=== PATIENT | female | born 1985 | race Caucasian/White ===

== ENCOUNTER → 2023-08-11 16:05 | Outpatient (REF) | payer BC, SELFPAY | LOC: RAD 16:05 | PROVIDERS: ATTENDING PHYSICIAN Obstetrics & Gynecology; FAMILY PHYSICIAN Internal Medicine | DX: Z36.9 Encounter for antenatal screening, unspecified (principal); Z34.90 Encounter for supervision of normal pregnancy, unspecified, unspecified trimester | CPT/HCPCS: 76801; 76817 ==

== ENCOUNTER 2024-02-05 08:52 | Inpatient (IN) | payer BC, SELFPAY ==
[2024-02-05 09:12] VITALS: BP 105/65; BMI 26.5
[2024-02-05] MEDS: TYLENOL 1000 MG PO (09:16)
[2024-02-05] MEDS: ANCEF 10 IV (09:17)
[2024-02-05] MEDS: BICITRA 30 ML PO (09:17)
[2024-02-05 09:20] LABS: Hematocrit 33.2 % (37.0-47.0); Hemoglobin 11.4 g/dL (12.0-16.0); Mean Corp Hgb Conc. 34.3 g/dL (33.0-37.0); Mean Corpuscular Hgb 28.4 pg (27.0-31.0); Mean Corpuscular Volume 82.6 fL (81.0-99.0); Mean Platelet Volume 9.3 fL (7.4-10.4); Platelet Count 188 10^3/uL (130-400); Red Blood Cell Count 4.02 10^6/uL (4.20-5.40); Red Cell Dist. Width 15.4 % (11.5-14.5); White Blood Cell Count 9.2 10^3/uL (4.8-10.8)
[2024-02-05 16:38] LABS: Hematocrit 33.1 % (37.0-47.0); Hemoglobin 11.5 g/dL (12.0-16.0); Mean Corp Hgb Conc. 34.7 g/dL (33.0-37.0); Mean Corpuscular Hgb 29.3 pg (27.0-31.0); Mean Corpuscular Volume 84.4 fL (81.0-99.0); Platelet Count 188 10^3/uL (130-400); Red Blood Cell Count 3.92 10^6/uL (4.20-5.40); Red Cell Dist. Width 15.2 % (11.5-14.5); White Blood Cell Count 15.6 10^3/uL (4.8-10.8)
[2024-02-05] MEDS: TYLENOL 650 MG PO (20:01)
[2024-02-05] MEDS: MOTRIN 600 MG PO (20:01)
[2024-02-06] MEDS: MOTRIN 600 MG PO ×4 (02:18→22:13)
[2024-02-06] MEDS: TYLENOL 650 MG PO ×4 (02:18→22:13)
[2024-02-06 05:50] LABS: Hematocrit 29.6 % (37.0-47.0); Hemoglobin 10.3 g/dL (12.0-16.0); Mean Corp Hgb Conc. 34.8 g/dL (33.0-37.0); Mean Corpuscular Hgb 29.6 pg (27.0-31.0); Mean Corpuscular Volume 85.1 fL (81.0-99.0); Mean Platelet Volume 9.3 fL (7.4-10.4); Platelet Count 174 10^3/uL (130-400); Red Blood Cell Count 3.48 10^6/uL (4.20-5.40); Red Cell Dist. Width 15.3 % (11.5-14.5); White Blood Cell Count 13.3 10^3/uL (4.8-10.8)
[2024-02-06] MEDS: PRENATAL PLUS 1 TABLET PO (08:41)
[2024-02-06] MEDS: SENOKOT-S 1 TABLET PO (08:41)
[2024-02-07] MEDS: TYLENOL 650 MG PO ×2 (05:14→15:18)
[2024-02-07] MEDS: MOTRIN 600 MG PO ×2 (05:14→15:18)
[2024-02-07] MEDS: SENOKOT-S 1 TABLET PO (08:19)
[2024-02-07] MEDS: PRENATAL PLUS 1 TABLET PO (08:19)
--- NOTE | 2024-02-07 13:54 | W.PN.ANS.POP ---
Anesthesia Post Operative
- Anesthesia Post Op Note
Vital Signs Stable-See Nursing Note: Yes
Airway Patent: Yes
Adequate Pain Control: Yes
Change in Mental Status: No
Current Postoperative Nausea & Vomiting: No
Anesthesia Complications: No
General Anesthetic Recall: No
Unplanned Admission: No
Post Op Hydration Adequate: Yes
[2024-02-08] MEDS: TYLENOL 650 MG PO ×2 (02:02→08:20)
[2024-02-08] MEDS: MOTRIN 600 MG PO ×2 (02:03→08:20)
[2024-02-08] MEDS: PRENATAL PLUS 1 TABLET PO (08:19)
--- NOTE | 2024-02-08 09:42 | W.DS.TRANS ---
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
-
Discharge Instructions:
Discharge Diagnosis/Procedures rcs
Instructions:
Stand-Alone Forms: LDRP Delivery
Changes to Home Medications: No
Discharge Medications:
DC Medications w/original date entered in [employer]
vit no.95-ferrous fumarate 28 mg-folic acid 800 mcg tablet () 1 ea PO DAILY Supplement 06/21/19
Pepcid 40 mg ONCE 02/05/24
ibuprofen 600 mg tablet 600 mg PO Q6HPRN PRN cramps #90 tabs 02/08/24
Home Medication Changes
Pending Results: No
Total time spent discharging patient (in min): 20
[2024-02-09 15:22] LABS: Syphilis/T. pallidum Ab Reflex Negative (Negative)
== END 2024-02-08 12:27 | disposition home or self-care (01) | DRG 787 ==
LOC: LDRP 08:52
PROVIDERS: ADMITTING PHYSICIAN Obstetrics & Gynecology; ATTENDING PHYSICIAN Obstetrics & Gynecology
PROC: 10D00Z1 Extraction of Products of Conception, Low, Open Approach (ICD-10-PCS; 2024-02-05)
DX: O34.211 Maternal care for low transverse scar from previous cesarean delivery (principal); N99.840 Postprocedural hematoma of a genitourinary system organ or structure following a genitourinary system procedure; Z37.0 Single live birth; Z3A.39 39 weeks gestation of pregnancy; O99.892 Other specified diseases and conditions complicating childbirth; D27.1 Benign neoplasm of left ovary
CPT/HCPCS: 36415; 85027; 86780; 86850; 86900; 86901

== ENCOUNTER → 2024-09-27 10:28 | Outpatient (REF) | payer OTHER, SELFPAY | LOC: HWRAD 10:28 | PROVIDERS: ATTENDING PHYSICIAN Obstetrics & Gynecology; FAMILY PHYSICIAN Internal Medicine | DX: K09.8 Other cysts of oral region, not elsewhere classified (principal) | CPT/HCPCS: 76830; 76856 ==

== ENCOUNTER 2024-12-30 05:52 | Day surgery (SDC) | payer OTHER, SELFPAY ==
[2024-12-12 11:59] LABS: Beta HCG Quantitative < 2.39 mIU/ml
[2024-12-12 14:20] VITALS: BMI 20.8
[2024-12-30] VITALS (10 sets, daily range): BP systolic 79–113; BP diastolic 48–70; BMI 20.8
[2024-12-30] MEDS: NEURONTIN 300 MG PO (06:26)
[2024-12-30] MEDS: TYLENOL 1000 MG PO (06:26)
[2024-12-30] MEDS: NORMOSOL-R/PLASMALYTE-A 1000 IV (06:45)
[2024-12-30 06:53] LABS: Hematocrit 34.8 % (37.0-47.0); Hemoglobin 11.8 g/dL (12.0-16.0); Mean Corp Hgb Conc. 33.9 g/dL (33.0-37.0); Mean Corpuscular Volume 84.9 fL (81.0-99.0); Platelet Count 194 10^3/uL (130-400); Red Cell Dist. Width 12.9 % (11.5-14.5)
[2024-12-30 07:05] LABS: ALT (SGPT) 17 U/L (0-35); AST (SGOT) 23 U/L (14-36); Albumin 4.2 g/dl (3.5-5.0); Alkaline Phosphatase < 20 U/L (38-126); Blood Urea Nitrogen 18 mg/dl (7-17); Calcium 8.7 mg/dl (8.4-10.2); Carbon Dioxide 28 mmol/L (22-30); Chloride 107 mmol/L (98-107); Estimated Creatinine Clearance 104 ml/min; Glucose 87 mg/dl (70-99); Potassium 4.4 mmol/L (3.5-5.1); Sodium 140 mmol/L (135-145); Total Protein 6.4 g/dl (6.3-8.2); eGFR > 60.00
--- NOTE | 2024-12-30 09:28 | W.IMMPOSTOP ---
Surgical Immed Post Op Note
-
Primary Surgeon: Lary Regan DO
[place] Attendant: Agustina Ponce PA-C
Pre-op Diagnosis: Left ovarian dermoid cyst, endometrial echogenic focus seen on pelvic ultrasound
Post-op Diagnosis: same
Procedure Performed: Diagnostic hysteroscopy, dilation of cervix. Robotic laparoscopic left ovarian cystectomy/excision left dermoid cyst
Anesthesia Type: general ET Dr. Rivera
Specimen / Cultures: left ovarian dermoid cyst
Estimated Blood Loss: 5ml
Fluid deficit: 75 ML NSS from hysteroscopy
Complications: none
Operative Findings: Hysteroscopy findings: normal appearing endometrial cavity, bilateral tubal ostia seen. No evidence of endometrial nodule/polyp or mass.
Laparoscopic findings: normal appearing uterus, bilateral tubes and right ovary. Left ovary with approx 3 cm dermoid cyst excised completely.
Counts correct times 2.
Stable to recovery.
[2024-12-30] MEDS: TORADOL 15 MG IV (10:21)
== END 2024-12-30 11:40 | disposition home or self-care (01) ==
LOC: SDS 05:52
PROVIDERS: ATTENDING PHYSICIAN Obstetrics & Gynecology; FAMILY PHYSICIAN Internal Medicine
DX: D27.1 Benign neoplasm of left ovary (principal)
CPT/HCPCS: 58662; 58558; 36415; 80053; 84702; 85027; 86850; 86900; 86901; 88307